=== PATIENT | male | born 1950 | race Hispanic/Latino ===

== ENCOUNTER 2018-04-10 10:05 | Day surgery (SDC) | payer MEDICARE, MEDICAID ==
[2018-04-06 14:30] VITALS: BMI 32.5
[2018-04-10] MEDS ORDERED: Propofol 10 mg/ml Inj (20 ML) ONE (13:09)
[2018-04-10] MEDS ORDERED: Sodium Chloride 0.9% 1,000 ML IV SCH (15:00)
[2018-04-10 15:49] VITALS: BP 140/69; PULSE 82; RESP 18; TEMP 98; O2SAT 95
== END 2018-04-10 16:10 | disposition home or self-care (01) ==
LOC: ENDO 10:05
PROVIDERS: ATTEND Internal Medicine Gastroenterology
DX: K62.1 Rectal polyp (principal); K57.30 Diverticulosis of large intestine without perforation or abscess without bleeding; K64.8 Other hemorrhoids; R10.32 Left lower quadrant pain; D50.9 Iron deficiency anemia, unspecified; K44.9 Diaphragmatic hernia without obstruction or gangrene; K29.50 Unspecified chronic gastritis without bleeding; Z85.828 Personal history of other malignant neoplasm of skin; E11.9 Type 2 diabetes mellitus without complications; K21.0 Gastro-esophageal reflux disease with esophagitis; F41.9 Anxiety disorder, unspecified; F32.89 Other specified depressive episodes; Z90.49 Acquired absence of other specified parts of digestive tract; R10.12 Left upper quadrant pain; Z86.010 Personal history of colon polyps
CPT/HCPCS: 43239; 45380; 82948; 88305; 88312; 88342; J2704; J7030; J7040

== ENCOUNTER 2018-12-02 10:30 | Outpatient (CLI) | payer MEDICARE, MEDICAID | END 2018-12-02 10:31 | disposition home or self-care (01) | LOC: RAD 10:30 ==